=== PATIENT | male | born 1990 | race Caucasian/White ===

== ENCOUNTER → 2016-11-21 | Outpatient (CLI) | payer OTHER ==
--- NOTE | 2016-11-22 23:58 | EKG ---
Date Performed: 11/21/2016 Time Performed: 15:50:17 PTAGE: 26 years EKG: Sinus rhythm WITH SINUS ARRHYTHMIA NORMAL ECG NO PREVIOUS TRACING DOCTOR: Jame Haskins Interpretating Date/Time 11/22/2016 23:57:45
== END ==
LOC: EDSEX 15:40 → HCAV 15:40
PROVIDERS: ATTEND Family Medicine
DX: R07.9 Chest pain, unspecified (principal)
CPT/HCPCS: 93005